=== PATIENT | male | born 1970 | race Caucasian/White ===

== ENCOUNTER 2017-06-29 14:47 | Emergency (ER) | payer OTHER ==
--- NOTE | 2017-06-29 14:58 | ER Report ---
History and Physical Time Seen By MD: 14:57 HPI/ROS CHIEF COMPLAINT: Left leg pain, abdomen pain HISTORY OF PRESENT ILLNESS: 47-year-old male patient presents to emergency room with complaint of left leg pain. Patient states that pain started this morning. He states that the pain started as a cramp upwards blood and then seemed to radiate down the entire leg. Patient states that he felt unable to walk. He states the pain was worse whenever he stood up. He denies any nausea, vomiting or diarrhea. He states that he was fine yesterday. He denies any history of leg pain in the past. He is also noticed a bump around his bellybutton. He states this been there for approximately one week. He is concerned that he may have a hernia. He has not taken any medication for this. He states the pain is significant. REVIEW OF SYSTEMS: Respiratory: No cough, no dyspnea. Cardiovascular: No chest pain, no palpitations. Gastrointestinal: No vomiting, no abdominal pain. Musculoskeletal: As noted above Allergies: Coded Allergies: No Known Drug Allergies (Unverified , 06/29/17) Home Meds Active Scripts Methylprednisolone (METHYLPREDNISOLONE) 4 Mg Tab.ds.pk, 4 MG PO DIRECTED, # 21 TAB Prov:MAURI CATALANP 06/29/17 Oxycodone Hcl/Acetaminophen (PERCOCET 5-325 MG TABLET) 1 Each Tablet, 1 EACH PO Q4-6H Y for PAIN, #20 TAB Prov:MAURI CATALAN [employer] 06/29/17 Reported Medications Amlodipine Besylate (NORVASC) 5 Mg Tablet, 1 TAB PO QDAY, TAB 06/29/17 Omeprazole Magnesium (PRILOSEC OTC) 20 Mg Tablet. 06/29/17 Omeprazole Magnesium (PRILOSEC OTC) 20 Mg Tablet. 06/29/17 Acyclovir (ACYCLOVIR) 400 Mg Tablet 06/29/17 Simvastatin (SIMVASTATIN) 5 Mg Tablet 06/29/17 [Prilosec] No Conflict Check 06/29/17 Amlodipine Besylate (AMLODIPINE BESYLATE) 10 Mg Tablet 06/29/17 Enalapril/Hydrochlorothiazide (ENALAPRIL-HCTZ 10-25 MG TABLET) 1 Each Tablet 06/29/17 Past Medical/Surgical History Patient has a past medical history of hypertension, herpes, deviated septum. Patient has surgical history appendectomy. Reviewed Nurses Notes: Yes Constitutional Vital Sign - Last 24 Hours 06/29/17 06/29/17 06/29/17 06/29/17 14:56 14:57 15:00 15:02 Temp 97.5 Pulse 74 81 Resp 18 B/P (MAP) 142/95 (111) 142/95 127/93 (104) Pulse Ox 99 99 O2 Delivery Room Air 06/29/17 06/29/17 06/29/17 06/29/17 15:17 15:30 15:32 15:42 Pulse 75 73 78 B/P (MAP) 149/98 (115) Pulse Ox 99 97 06/29/17 06/29/17 06/29/17 06/29/17 15:47 16:00 16:02 16:17 Pulse 80 ? B/P (MAP) ???/??? (1665) Pulse Ox 97 98 06/29/17 06/29/17 06/29/17 06/29/17 16:30 16:32 16:47 17:00 Pulse 69 64 B/P (MAP) 125/92 (103) 145/103 (117) Pulse Ox 97 97 06/29/17 17:17 Pulse 73 Physical Exam General Appearance: The patient is alert, has no immediate need for airway protection and no current signs of toxicity. Respiratory: Chest is non tender, lungs are clear to auscultation. Cardiac: regular rate and rhythm Gastrointestinal: Abdomen is soft and tender around the umbilicus, no masses, bowel sounds normal. Musculoskeletal: Neck: Neck is supple and non tender. Extremities have full range of motion and are non tender. Skin: No rashes or lesions. DIFFERENTIAL DIAGNOSIS: After history and physical exam differential diagnosis was considered for leg pain, sciatica, umbilical hernia. Medical Decision Making Data Points Result Diagram: 06/29/17 1516 06/29/17 1516 Laboratory Hematology Test 06/29/17 15:16 Red Blood Count 4.93 M/uL (4.00-5.60) Mean Corpuscular Volume 81.8 fL (80.0-96.0) Mean Corpuscular Hemoglobin 27.7 pg (26.0-33.0) Mean Corpuscular Hemoglobin Concent 33.9 g/dL (32.0-36.0) Red Cell Distribution Width 14.5 % (11.5-14.5) Mean Platelet Volume 7.3 fL (7.2-11.1) Neutrophils (%) (Auto) 49.8 % (39.4-72.5) Lymphocytes (%) (Auto) 36.8 % (17.6-49.6) Monocytes (%) (Auto) 9.5 % (4.1-12.4) Eosinophils (%) (Auto) 3.1 % (0.4-6.7) Basophils (%) (Auto) 0.8 % (0.3-1.4) Nucleated RBC Relative Count (auto) 0.1 /100WBC Neutrophils # (Auto) 2.8 K/uL (2.0-7.4) Lymphocytes # (Auto) 2.1 K/uL (1.3-3.6) Monocytes # (Auto) 0.5 K/uL (0.3-1.0) Eosinophils # (Auto) 0.2 K/uL (0.0-0.5) Basophils # (Auto) 0.0 K/uL (0.0-0.1) Nucleated RBC Absolute Count (auto) 0.00 K/uL Urine Color Yellow Urine Clarity Clear Urine pH 6.0 pH (4.8-9.5) Urine Specific [place] 1.019 Urine Protein Negative mg/dL (NEGATIVE) Urine Glucose (UA) Negative mg/dL (NEGATIVE) Urine Ketones Negative mg/dL (NEGATIVE) Urine Blood Negative (NEGATIVE) Urine Nitrite Negative (NEGATIVE) Urine Bilirubin Negative (NEGATIVE) Urine Urobilinogen Negative mg/dL (0.2-1.9) Urine Leukocyte Esterase Negative (NEGATIVE) Urine RBC 2 /HPF (0-2/HPF) Urine WBC 1 /HPF (0-5/HPF) Urine Squamous Epithelial Cells None /LPF (</=FEW) Urine Bacteria Negative /HPF (NONE-FEW) Urine Mucus None /HPF (NONE-FEW) Sodium Level 141 mmol/L (137-145) Potassium Level 4.0 mmol/L (3.5-5.0) Chloride Level 106 mmol/L (98-107) Carbon Dioxide Level 25 mmol/L (22-30) Blood Urea Nitrogen 14 mg/dl (9-21) Creatinine 1.10 mg/dl (0.66-1.25) Glomerular Filtration Rate Calc > 60.0 Random Glucose 101 mg/dl (75-110) Calcium Level 9.3 mg/dl (8.4-10.2) Total Bilirubin 0.7 mg/dl (0.2-1.3) Aspartate Amino Transf (AST/SGOT) 34 U/L (0-35) Alanine Aminotransferase (ALT/SGPT) 47 U/L (0-56) Alkaline Phosphatase 68 U/L (0-126) C-Reactive Protein 1.1 mg/dl (<1.0) Total Protein 7.5 gm/dl (6.3-8.2) Albumin 4.1 g/dl (3.5-5.0) Amylase Level 59 U/L (0-110) Lipase 137 U/L (23-300) Chemistry Test 06/29/17 15:16 White Blood Count 5.7 k/uL (4.5-11.0) Red Blood Count 4.93 M/uL (4.00-5.60) Hemoglobin 13.7 g/dL (14.0-18.0) Hematocrit 40.3 % (42.0-52.0) Mean Corpuscular Volume 81.8 fL (80.0-96.0) Mean Corpuscular Hemoglobin 27.7 pg (26.0-33.0) Mean Corpuscular Hemoglobin Concent 33.9 g/dL (32.0-36.0) Red Cell Distribution Width 14.5 % (11.5-14.5) Platelet Count 261 K/uL (150-450) Mean Platelet Volume 7.3 fL (7.2-11.1) Neutrophils (%) (Auto) 49.8 % (39.4-72.5) Lymphocytes (%) (Auto) 36.8 % (17.6-49.6) Monocytes (%) (Auto) 9.5 % (4.1-12.4) Eosinophils (%) (Auto) 3.1 % (0.4-6.7) Basophils (%) (Auto) 0.8 % (0.3-1.4) Nucleated RBC Relative Count (auto) 0.1 /100WBC Neutrophils # (Auto) 2.8 K/uL (2.0-7.4) Lymphocytes # (Auto) 2.1 K/uL (1.3-3.6) Monocytes # (Auto) 0.5 K/uL (0.3-1.0) Eosinophils # (Auto) 0.2 K/uL (0.0-0.5) Basophils # (Auto) 0.0 K/uL (0.0-0.1) Nucleated RBC Absolute Count (auto) 0.00 K/uL Urine Color Yellow Urine Clarity Clear Urine pH 6.0 pH (4.8-9.5) Urine Specific [place] 1.019 Urine Protein Negative mg/dL (NEGATIVE) Urine Glucose (UA) Negative mg/dL (NEGATIVE) Urine Ketones Negative mg/dL (NEGATIVE) Urine Blood Negative (NEGATIVE) Urine Nitrite Negative (NEGATIVE) Urine Bilirubin Negative (NEGATIVE) Urine Urobilinogen Negative mg/dL (0.2-1.9) Urine Leukocyte Esterase Negative (NEGATIVE) Urine RBC 2 /HPF (0-2/HPF) Urine WBC 1 /HPF (0-5/HPF) Urine Squamous Epithelial Cells None /LPF (</=FEW) Urine Bacteria Negative /HPF (NONE-FEW) Urine Mucus None /HPF (NONE-FEW) Glomerular Filtration Rate Calc > 60.0 Calcium Level 9.3 mg/dl (8.4-10.2) Total Bilirubin 0.7 mg/dl (0.2-1.3) Aspartate Amino Transf (AST/SGOT) 34 U/L (0-35) Alanine Aminotransferase (ALT/SGPT) 47 U/L (0-56) Alkaline Phosphatase 68 U/L (0-126) C-Reactive Protein 1.1 mg/dl (<1.0) Total Protein 7.5 gm/dl (6.3-8.2) Albumin 4.1 g/dl (3.5-5.0) Amylase Level 59 U/L (0-110) Lipase 137 U/L (23-300) Urinalysis Test 06/29/17 15:16 Urine Color Yellow Urine Clarity Clear Urine pH 6.0 pH (4.8-9.5) Urine Specific [place] 1.019 Urine Protein Negative mg/dL (NEGATIVE) Urine Glucose (UA) Negative mg/dL (NEGATIVE) Urine Ketones Negative mg/dL (NEGATIVE) Urine Blood Negative (NEGATIVE) Urine Nitrite Negative (NEGATIVE) Urine Bilirubin Negative (NEGATIVE) Urine Urobilinogen Negative mg/dL (0.2-1.9) Urine Leukocyte Esterase Negative (NEGATIVE) Urine RBC 2 /HPF (0-2/HPF) Urine WBC 1 /HPF (0-5/HPF) Urine Squamous Epithelial Cells None /LPF (</=FEW) Urine Bacteria Negative /HPF (NONE-FEW) Urine Mucus None /HPF (NONE-FEW) EKG/Imaging Imaging INDICATION: Abdominal pain. COMPARISON: 11/20/2010 CT abdomen. TECHNIQUE: Contrast enhanced abdomen and pelvis CT performed during the injection of 75 ml of Isovue 370. Sagittal and coronal reconstructions were performed. One of the following dose optimization techniques was utilized in the performance of this exam: Automated exposure control; adjustment of the mA and/or kV according to the patient's size; or use of an iterative reconstruction technique. Specific details can be referenced in the facility's radiology CT exam operational policy. FINDINGS: Lung bases: Minimal scarring/atelectasis. Liver and hepatic vasculature: Normal. Gallbladder and bile ducts: Normal. Spleen: Normal. Pancreas: Normal. Adrenals: Normal. Kidneys, ureters and bladder: No acute abnormality or suspicious lesion. Parapelvic cyst on the left. Retroperitoneum and aorta: Normal aorta. Mildly prominent left para-aortic lymph node on image 36 series 2 is similar in appearance to 2011 and is of doubtful significance. No suspicious adenopathy. GI tract, mesentery and peritoneum: No evidence of obstruction. No pneumatosis or pneumoperitoneum. Small volume of free fluid in the pelvis. The appendix is not identified, though there is no inflammatory change in the region of the cecum. Prostate and seminal vesicles: Normal. Bones and soft tissues: No suspicious lesion. Small fat-containing umbilical hernia. IMPRESSION: 1. Small volume of free fluid in the pelvis is nonspecific but may be related to overall fluid status/3rd spacing, or could indicate occult inflammatory process. 2. Small fat-containing umbilical hernia. Report Dictated By: Arthur Heredia MD at 06/29/2017 4:21 PM Report E-Signed By: Arthur Heredia MD at 06/29/2017 4:31 PM ED Course/Re-evaluation ED Course Patient was admitted to an exam room, history and physical were obtained. Differential diagnosis was considered. On examination patient had no palpable tenderness to the left leg, has some tenderness in the periumbilical region. A CBC, CMP, urinalysis were obtained. A CT scan of the abdomen and pelvis was done. The reason for the CT scan was twofold it was one to look at the back as well as looking at the significance of the hernia. The hernia does contain fat but no loops of bowel. The bones all looked normal. I discussed the findings with the patient and his significant other. The patient received a dose of Solu- Medrol, 4 mg morphine. We did get the patient up and walk him. Patient was able to walk and bear weight. We'll go ahead and discharge patient home. I believe that the cause of the pain that the patient is having is related to his back and the pain is radiating down the left leg. Patient does have a hernia which is going to need to be repaired. Upon looking over the patient's past medical history I suspect that the hernia is likely caused from the appendectomy the patient had. Decision to Disposition Date: Jun 29, 2017 Decision to Disposition Time: 17:02 Depart Departure Latest Vital Signs Vital Signs Date Time Temp Pulse Resp B/P (MAP) Pulse Ox O2 Delivery O2 Flow Rate FiO2 06/29/17 17:17 73 06/29/17 17:00 145/103 (117) 06/29/17 16:47 97 06/29/17 14:57 97.5 18 Room Air Impression: Primary Impression: Leg pain Additional Impression: Umbilical hernia Condition: Improved Disposition: HOME OR SELF-CARE Referrals: SWETHA GASCA DO (PCP) [place] Methylprednisolone (METHYLPREDNISOLONE) 4 Mg Tab.ds.pk 4 MG PO DIRECTED, #21 TAB Prov: MAURI CATALAN 06/29/17 Oxycodone Hcl/Acetaminophen (PERCOCET 5-325 MG TABLET) 1 Each Tablet 1 EACH PO Q4-6H Y for PAIN, #20 TAB Prov: MAURI CATALAN [employer] 06/29/17 Patient Instructions: Leg Pain (ED), Umbilical Hernia (ED) Additional Instructions: Limit activity by pain. Follow up with Dr. Egan at [facility]. Take your medication as prescribed. Get plenty of rest. Return to the ER if condition worsens. It is my thought that this is likely related to swelling in the discs in the low back which is causing the pain to radiate down left leg. Problem Qualifiers Primary Impression: Leg pain Laterality: right Qualified Codes: M79.604 - Pain in right leg Additional Impression: Umbilical hernia Obstruction and gangrene presence: without obstruction or gangrene Qualified Codes: K42.9 - Umbilical hernia without obstruction or gangrene MAURI CATALAN Jun 29, 2017 14:58
[2017-06-29] MEDS ORDERED: ENAL1TAB35 (15:00)
[2017-06-29] MEDS ORDERED: NS(*) 0.9% 1000 ML BAG 1,000 ML IV ONE (15:06)
[2017-06-29] MEDS ORDERED: ACYC-50 (15:22)
[2017-06-29] MEDS ORDERED: SIMV5TAB60 (15:22)
[2017-06-29] MEDS ORDERED: AMLO-101 PO (15:22)
[2017-06-29] MEDS ORDERED: AMLO-99 (15:22)
[2017-06-29] MEDS ORDERED: OMEP-218 (15:22)
[2017-06-29] MEDS ORDERED: Prilosec (15:22)
[2017-06-29 15:28] LABS: PLATELET COUNT, AUTOMATED 261 K/uL (150-450)
[2017-06-29] MEDS ORDERED: NS 0.9% 50 ML VIAL 50 ML ONE (16:04)
[2017-06-29] MEDS ORDERED: IOPAMIDOL 76% 75 ML INFUS BTL 75 ML ONE (16:04)
--- NOTE | 2017-06-29 16:35 | RADIOLOGY IMAGING REPORT ---
FACILITY: [facility] - [place] PATIENT NAME: Charles Rosario : 1970 MR: [id number] V: [id number] EXAM DATE: ORDERING PHYSICIAN: MAURI CATALAN TECHNOLOGIST: Location: [facility] - [place] Patient: Charles Rosario : 1970 Visit/Account:[id number] Date of Sevice: 06/29/2017 COMPUTED TOMOGRAPHY ABDOMEN AND PELVIS WITH INTRAVENOUS CONTRAST DATE OF EXAM: 06/29/2017 3:52 PM INDICATION: Abdominal pain. COMPARISON: 11/20/2010 CT abdomen. TECHNIQUE: Contrast enhanced abdomen and pelvis CT performed during the injection of 75 ml of Isovue 370. Sagittal and coronal reconstructions were performed. One of the following dose optimization te chniques was utilized in the performance of this exam: Automated exposure control; adjustment of the mA and/or kV according to the patient's size; or use of an iterative reconstruction technique. Spec [facility] details can be referenced in the facility's radiology CT exam operational policy. FINDINGS: Lung bases: Minimal scarring/atelectasis. Liver and hepatic vasculature: Normal. Gallbladder and bile ducts: Normal. Spleen: Normal. Pancreas: Normal. Adrenals: Normal. Kidneys, ureters and bladder: No acute abnormality or suspicious lesion. Parapelvic cyst on the lef t. Retroperitoneum and aorta: Normal aorta. Mildly prominent left para-aortic lymph node on image 36 s eries 2 is similar in appearance to 2011 and is of doubtful significance. No suspicious adenopathy. GI tract, mesentery and peritoneum: No evidence of obstruction. No pneumatosis or pneumoperitoneum. Small volume of free fluid in the pelvis. The appendix is not identified, though there is no infla mmatory change in the region of the cecum. Prostate and seminal vesicles: Normal. Bones and soft tissues: No suspicious lesion. Small fat-containing umbilical hernia. IMPRESSION: 1. Small volume of free fluid in the pelvis is nonspecific but may be related to overall fluid statu s/3rd spacing, or could indicate occult inflammatory process. 2. Small fat-containing umbilical hernia. Report Dictated By: Arthur Heredia MD at 06/29/2017 4:21 PM Report E-Signed By: Arthur Heredia MD at 06/29/2017 4:31 PM WSN:[id number]
[2017-06-29] MEDS ORDERED: methylPREDNIS SUCC 125 MG/2ML IVP ONE (16:50)
[2017-06-29] MEDS ORDERED: MORPHINE 4 MG/ML SYR IVP ONE (16:50)
[2017-06-29] MEDS ORDERED: OXYC-865 PO (16:58)
[2017-06-29] MEDS ORDERED: METH4TAB66 PO (16:58)
[2017-06-29 17:37] VITALS: BP 146/95
== END 2017-06-29 17:40 | disposition home or self-care (01) ==
LOC: ER 14:58
DX: K42.9 Umbilical hernia without obstruction or gangrene (principal); M79.604 Pain in right leg
CPT/HCPCS: 74177; 81001; 82150; 83690; 85025; 86140; 96361; 96374; 96375; 99284; J2270; J2930; J7030; J7050; Q9967; 82040; 82247; 82310; 82374; 82435; 82565; 82947; 84075; 84132; 84155; 84295; 84450; 84460; 84520

== ENCOUNTER 2017-09-03 01:37 | Day surgery (SDC) | payer OTHER ==
[~2017-09-03] VITALS: Ht 175.3 cm; Wt 83.9 kg
[~2017-09-03 01:37] MED LIST: ACYC-50; AMLO-101 PO; AMLO-104 PO; AMLO-99 PO; ENAL1TAB PO; ENAL1TAB35 PO; GABA-549 PO; METH4TAB66 PO; OMEP-218; OXYC-865 PO; Prilosec; SIMV10TA98 PO; SIMV5TAB60
[2017-09-03] MEDS ORDERED: LIDOCAINE/SOD BICARB 8.4% SYR ID ONE (06:45)
[2017-09-03] MEDS ORDERED: NORMOSOL R SOLN(*) 1000 ML BAG 1,000 ML IV PRN (06:45)
[2017-09-03] MEDS ORDERED: ceFAZolin(*) 2GM/D5W 50ML 50 ML IVPB ONE (06:45)
[2017-09-03] MEDS ORDERED: MIDAZOLAM 2 MG/2 ML VIAL IVP ONE (06:45)
[2017-09-03] MEDS ORDERED: ROPIVACAINE 0.5% 20 ML VIAL ONE (07:22)
[2017-09-03 07:40] VITALS: BP 134/89
--- NOTE | 2017-09-03 08:01 | EKG ---
FACILITY: [facility] PATIENT NAME: MAEVE COUCH : [id number] MR: [id number] V: [id number] EXAM DATE: ORDERING PHYSICIAN: ACE PATEL TECHNOLOGIST: VÍCTOR Test Reason : PREOP-HERNIA Blood Pressure : / mmHG Vent. Rate : 079 BPM Atrial Rate : 079 BPM P-R Int : 212 ms QRS Dur : 100 ms QT Int : 382 ms P-R-T Axes : 053 008 057 degrees QTc Int : 438 ms Sinus rhythm with 1st degree AV block Otherwise normal ECG No previous ECGs available Confirmed by ALBER VIERA ([id number]) on 09/03/2017 1:49:30 PM Referred By: LASHON Confirmed By:ALBER VIERA
[2017-09-03] MEDS ORDERED: LIDOCAINE MPF 1% 5 ML VIAL ONE (09:11)
[2017-09-03] MEDS ORDERED: ONDANSETRON 4 MG/2 ML VIAL ONE (09:11)
[2017-09-03] MEDS ORDERED: PROPOFOL EMUL(*) 10MG/ML 20 ML 20 ML ONE (09:11)
[2017-09-03] MEDS ORDERED: ROCURONIUM BROM 10 MG/ML 10 ML ONE (09:11)
[2017-09-03] MEDS ORDERED: DEXAMETHASONE SOD PHOS 10MG/ML ONE (09:11)
[2017-09-03] MEDS ORDERED: fentaNYL CITR 100 MCG/2 ML AMP ONE ×2 (09:12→11:00)
[2017-09-03] MEDS ORDERED: MIDAZOLAM 2 MG/2 ML VIAL ONE (09:12)
[2017-09-03] MEDS ORDERED: SUGAMMADEX SOD 500 MG/5 ML SDV ONE (09:23)
[2017-09-03] MEDS ORDERED: NS 0.9% IRRIGATION 1000ML PLCT IR ONE (10:25)
[2017-09-03] MEDS ORDERED: NEOMYCIN/POLYMYX/BACITR 30 GM TP ONE (10:38)
[2017-09-03] MEDS ORDERED: OXYC-854 PO (10:53)
[2017-09-03] MEDS ORDERED: DOCU-416 PO (10:53)
--- NOTE | 2017-09-03 10:56 | Short(Outpt) Discharge Summary ---
Discharge Summary Reason for Hosp/Final Diag: (1) Umbilical hernia Status: Chronic Hospital Course & Plan: UHR completed without problems. Departure Discharge to: Home, Self Care Discharge Instructions Home Meds Active Scripts Docusate Sodium (COLACE) 100 Mg Capsule, 1 CAP PO BID, #30 CAP 0 Refills TAKE WITH A FULL GLASS OF WATER Prov:ACE OATES MD 09/03/17 Oxycodone Hcl/Acet 5/325 Mg (ENDOCET 5-325 TABLET) 1 Each Tablet, 1-2 TAB PO Q4H Y for PAIN, #30 TAB 0 Refills Prov:ACE OATES MD 09/03/17 Reported Medications Enalapril/Hydrochlorothiazide (VASERETIC 10-25 MG TABLET) 1 Each Tablet, 1 EACH PO QDAY 08/26/17 Amlodipine Besylate (NORVASC) 10 Mg Tablet, 1 TAB PO QDAY, TAB 08/26/17 Gabapentin (GABAPENTIN) 300 Mg Capsule, 300 MG PO TID, CAPSULE 08/12/17 Simvastatin (SIMVASTATIN) 10 Mg Tablet, 10 MG PO HS, TAB 07/28/17 Omeprazole Magnesium (PRILOSEC OTC) 20 Mg Tablet. 06/29/17 Acyclovir (ACYCLOVIR) 400 Mg Tablet, 1 TAB QDAY 06/29/17 Follow up Referrals: General Surgery - 09/16/17 @ Surgery, General with Ace Oates Md You have a follow up appointment scheduled with Dr. Oates on 09/16/17, at 1: 45pm. Diet: Regular Activity: No Heavy Lifting Special Instructions: You may remove the white surgical dressing and underlying gauze on 09/05/17, then you can shower. After showering, leave the incision open to air but leave the steristrips in place until they fall off on their own. Do no immerse the incision for 2 weeks. Avoid any activity that involves straining or lifting more than 10 pounds for 4 weeks after surgery. Problem Qualifiers (1) Umbilical hernia: Obstruction and gangrene presence: without obstruction or gangrene Qualified Codes: K42.9 - Umbilical hernia without obstruction or gangrene ACE OATES MD Sep 03, 2017 10:56
--- NOTE | 2017-09-03 11:00 | Post Operative Progress Note ---
Post Operative Progress Note Date: Sep 03, 2017 Time: 10:56 Surgeon: Kemal Dictation number: [id number] Anesthesia: LMA by Dr. Felix Pre-Op Diagnosis: [facility] Post-Op Diagnosis: MISAEL Findings: C/W dx Procedure(s): UHR Specimen Removed:(May be N/A): None Complications: None Fluids: See anesthesia record Estimated Blood Loss: Minimal Date OP Note Dictated: Sep 03, 2017 Time OP Note Dictated: 10:57 ACE OATES MD Sep 03, 2017 11:00
[2017-09-03 11:52] VITALS: BP 121/93
[2017-09-03 12:15] VITALS: BP 118/81
[2017-09-03 12:23] VITALS: BP 133/93
[2017-09-03 12:25] VITALS: BP 134/97
--- NOTE | 2017-09-03 17:53 | OPERATIVE REPORT 1 ---
EVENT DATE: September 03, 2017 SURGEON: Reilly Sommer MD ANESTHESIOLOGIST: Gurdeep Felix MD ANESTHESIA: LMA. PREOPERATIVE DIAGNOSIS Umbilical hernia. POSTOPERATIVE DIAGNOSIS Umbilical hernia. PROCEDURE PERFORMED Umbilical hernia repair with mesh. COMPLICATIONS None. CONDITION Stable. BLOOD LOSS Minimal. INDICATIONS This is a 47-year-old gentleman who presented to my office with a bulge at his umbilicus, slowly getting larger and more painful. He is requesting to have it repaired. DESCRIPTION OF PROCEDURE The patient was brought to the operating room and placed supine on the operating table. LMA anesthesia was administered, and his abdomen was prepped and draped in a sterile fashion. A timeout was completed. I injected the infraumbilical skin with 0.5% ropivacaine plain. I made a curvilinear smiley face-type incision in the infraumbilical rim and dissected down through the dermis and subcutaneous fat. I dissected bluntly around the umbilical stalk and then raised the umbilicus up from the underlying fascia. I then identified the fascial defect which was a little over a centimeter in diameter. I cleaned off the superficial surface as well as the deep surface of the fascia for several centimeters on all sides. I did not penetrate the peritoneal cavity at all. Once the fascia was cleaned off, I placed a 4.3-inch round piece of C-QUR omega-3 coated mesh into the preperitoneal space and then closed the fascia over the mesh with interrupted 0 Ethibond sutures. I included the mesh in the closure with a couple of the sutures. I irrigated and dried the wound and then tacked the umbilicus down with a single 3-0 Vicryl suture. I then closed the skin with 4-0 Monocryl running subcuticular suture. The skin was cleaned and dried, and Steri-Strips were applied. I packed the umbilicus with an antibacterial ointment-saturated 2 x 2 gauze and then placed a sterile surgical dressing over this. The patient was awakened and LMA removed. He was transported to the recovery room in stable condition having tolerated the procedure without any apparent problems. SAUD
== END 2017-09-03 11:52 | disposition home or self-care (01) ==
LOC: OR 01:37
PROVIDERS: ATTEND Surgery
DX: K42.9 Umbilical hernia without obstruction or gangrene (principal); I10 Essential (primary) hypertension
CPT/HCPCS: 49585; 93005; J1100; J2001; J2250; J2405; J2704; J2795; J3010; J0690